=== PATIENT | male | born 1960 | race Caucasian/White ===

== ENCOUNTER 2021-07-29 10:46 | Emergency (ER) | payer BC ==
[~2021-07-29] VITALS: Ht 180.3 cm; Wt 106.6 kg
[~2021-07-29 10:46] MED LIST: AMLODIPINE-BEN1 EACH PO; ASPIRIN EC81 MG PO; ATORVASTATIN CA10 MG PO; ESOMEPRAZOLE MA40 MG PO; NITROSTAT 0.40.4 MG SL
== END 2021-07-29 13:30 | disposition home or self-care (01) ==
LOC: ER1 10:46
DX: Z23 Encounter for immunization (principal); U07.1 COVID-19; I10 Essential (primary) hypertension; E78.5 Hyperlipidemia, unspecified; F17.220 Nicotine dependence, chewing tobacco, uncomplicated
CPT/HCPCS: 99283; M0243